=== PATIENT | female | born 1955 | race Caucasian/White ===

== ENCOUNTER 2017-02-05 05:57 | Inpatient (IN) | payer BC ==
[2017-02-05] MEDS ORDERED: Docusate Sodium 100 MG Cap PO PRN (06:21)
[2017-02-05] MEDS ORDERED: Naloxone 0.4 MG/ML SDV IVPUSH PRN (06:21)
[2017-02-05] MEDS ORDERED: diphenhydrAMINE 50 MG/ML SDV IVPUSH PRN ×2 (06:21→07:58)
[2017-02-05] MEDS ORDERED: Sennosides 8.6 MG Tab PO PRN (06:21)
[2017-02-05] MEDS ORDERED: Bisacodyl 5 MG Tab PO PRN (06:21)
[2017-02-05] MEDS ORDERED: Morphine 2 MG/ML Syringe IVPUSH PRN (06:21)
[2017-02-05] MEDS ORDERED: Magnesium Hydroxide 400 MG/5 ML Susp 30 ML Cup PO PRN (06:21)
[2017-02-05] MEDS ORDERED: Cyclobenzaprine 10 MG Tab PO PRN (06:21)
[2017-02-05] MEDS ORDERED: ceFAZolin 2 GM in Premix Bag 1 BAG IV SCH (06:30)
[2017-02-05] MEDS ORDERED: Ketorolac 15 MG/ML SDV IVPUSH SCH (06:30)
[2017-02-05] MEDS: Lactated Ringers 1,000 ML IV SCH ×2 (06:30→09:31)
--- NOTE | 2017-02-05 06:51 | PCM.PREANE ---
Preanesthetic Assessment - Anesthesia/Transfusion/Family Hx Anesthesia History: Prior Anesthesia Without Reaction Family History of Anesthesia Reaction: No Transfusion History: No Prior Transfusion(s) - Review of Systems General: No Symptoms Pulmonary: No Symptoms Cardiovascular: No Symptoms Gastrointestinal: No Symptoms Neurological: No Symptoms Other: Reports: None - Physical Assessment NPO Status Date: 02/04/17 NPO Status Time: 22:30 O2 Sat by Pulse Oximetry: 93 Respiratory Rate: 16 Vital Signs: Last Vital Signs Temp 36.9 C 02/05/17 06:05 Pulse 93 02/05/17 06:05 Resp 16 02/05/17 06:05 BP 126/88 02/05/17 06:05 Pulse Ox 93 L 02/05/17 06:05 ASA Class: 2 Mental Status: Alert & Oriented x3 Airway Class: Mallampati = 1 Dentition: Reports: Normal Dentition Thyro-Mental Finger Breadths: 2 Mouth Opening Finger Breadths: 3 ROM/Head Extension: Full Lungs: Clear to Auscultation, Normal Respiratory Effort Cardiovascular: Regular Rate, Regular Rhythm - Lab Values: Reviewed - Imaging/EKG Impressions: Reviewed - Allergies Allergies/Adverse Reactions: Allergies Allergy/AdvReac Type Severity Reaction Status Date / Time No Known Allergies Allergy Verified 02/02/17 14:38 - Acknowledgements Anesthesia Type Planned: Spinal Pt an Appropriate Candidate for the Planned Anesthesia: Yes Alternatives and Risks of Anesthesia Discussed w Pt/Guardian: Yes Pt/Guardian Understands and Agrees with Anesthesia Plan: Yes PreAnesthesia Questionnaire HEENT History: Reports: Allergic Rhinitis, Impaired Vision, Sinusitis, Other ( See Below) Other HEENT History: wears glasses Cardiovascular History: Reports: None Respiratory History: Reports: None Gastrointestinal History: Reports: None Genitourinary History: Reports: None [employer]CH[employer] SPECIALIST History: Reports: Other (See Below) Other OB/BYN History: hot flashes, breast lumpectomy Musculoskeletal History: Reports: Arthritis, Other (See Below) Other Musculoskeletal History: metacarpal fracture with fixation Neurological History: Reports: None Psychiatric History: Reports: Other (See Below) Other Psychiatric History: insomnia Endocrine/Metabolic History: Reports: None Hematologic History: Reports: None Immunologic History: Reports: None Oncologic (Cancer) History: Reports: None Dermatologic History: Reports: None - Past Surgical History Head Surgeries/Procedures: Reports: None Cardiovascular Surgical History: Reports: None Respiratory Surgical History: Reports: None GI Surgical History: Reports: None Female Surgical History: Reports: Hysterectomy Male Surgical History: Reports: None Endocrine Surgical History: Reports: None Neurological Surgical History: Reports: None Musculoskeletal Surgical History: Reports: None Oncologic Surgical History: Reports: None Dermatological Surgical History: Reports: None - SUBSTANCE USE Smoking Status *Q: Never Smoker Second Hand Smoke Exposure: No Days Per Week of Alcohol Use: 0 Number of Drinks Per Day: 0 Total Drinks Per Week: 0 Recreational Drug Use History: No - HOME MEDS Home Medications: Home Meds C-Progesterone 1 applic TOP DAILY 02/02/17 [History] Cholecalciferol (Vitamin D3) [Vitamin D3] 2,000 unit PO DAILY 02/02/17 [History] Ibuprofen 400 mg PO TID PRN 02/02/17 [History] Loratadine [Claritin] 10 mg PO DAILY PRN 02/02/17 [History] Magnesium 250 mg PO TID 02/02/17 [History] Multivitamin [Daily Multiple Vitamin] 1 tab PO DAILY 02/02/17 [History] Zolpidem Tartrate [Zolpidem Tartrate] 5 mg PO BEDTIME PRN 02/02/17 [History] - CURRENT (IN HOUSE) MEDS Current Meds: Current Medications Aspirin (Ecotrin) 325 mg PO BID JOAQUIM Bisacodyl (Dulcolax) 5 mg PO DAILY PRN PRN Reason: Constipation Morphine Sulfate 8 mg/Epinephrine HCl 0.3 mg/Cefuroxime Sodium 750 mg/Ketorolac Tromethamine 30 mg/Sodium Chloride 27.9 ml 0 mg .XX ONETIME ONE Stop: 02/05/17 06:22 Cyclobenzaprine HCl (Flexeril) 10 mg PO TID PRN PRN Reason: Spasms Diphenhydramine HCl (Benadryl) 25 mg IVPUSH Q4H PRN PRN Reason: Nausea Docusate Sodium (Colace) 100 mg PO BID PRN PRN Reason: Constipation Famotidine (Pepcid) 20 mg PO Q12H [facility] Lactated Ringer's (Ringers, Lactated) 1,000 mls @ 125 mls/hr IV ASDIRECTED [facility] Cefazolin Sodium/Dextrose 2 gm (/ Premix) 50 mls @ 100 mls/hr IV Q8H JOAQUIM Stop: 02/05/17 22:59 Ketorolac Tromethamine (Toradol) 15 mg IVPUSH Q6H JOAQUIM Stop: 02/05/17 18:31 Lidocaine/Sodium Bicarbonate (Buffered Lidocaine 1% In Ns 8.4%) 0.25 ml IV ONETIME PRN PRN Reason: Prior to IV Start Magnesium Hydroxide (Milk Of Magnesia) 30 ml PO BID PRN PRN Reason: Constipation Morphine Sulfate (Morphine) 2 mg IVPUSH Q2H PRN PRN Reason: Breakthrough Pain Naloxone HCl (Narcan) 0.1 mg IVPUSH Q5M PRN PRN Reason: Oversedation Ondansetron HCl (Zofran) 4 mg IVPUSH Q6H PRN PRN Reason: Nausea/Vomiting Oxycodone/Acetaminophen (Percocet 325-5 Mg) 1 - 2 tab PO Q4H PRN PRN Reason: Pain Senna (Senna) 8.6 mg PO BID PRN PRN Reason: Constipation Sodium Chloride (Saline Flush) 10 ml FLUSH ASDIRECTED PRN PRN Reason: Keep Vein Open Discontinued Medications Bupivacaine HCl (Marcaine 0.25%) Confirm Administered Dose 30 ml .ROUTE .STK- MED ONE Stop: 02/05/17 06:01 Cefazolin Sodium (Ancef) Confirm Administered Dose 2 gm .ROUTE .STK-MED ONE Stop: 02/05/17 06:01 Iodine (Iodine 2% Mild Tincture) Confirm Administered Dose 30 ml .ROUTE .STK- MED ONE Stop: 02/05/17 06:01 Tranexamic Acid (Cyklokapron) Confirm Administered Dose 1,000 mg .ROUTE .STK- MED ONE Stop: 02/05/17 06:00 Vancomycin HCl (Vancomycin) Confirm Administered Dose 1 gm .ROUTE .STK-MED ONE Stop: 02/05/17 06:01
[2017-02-05] MEDS ORDERED: Lidocaine 1%/Sod Bicarbonate in NS 8.4% 1 ML Syringe IV PRN (07:00)
[2017-02-05] MEDS ORDERED: Sodium Chloride 0.9% 10 ML Syringe FLUSH PRN (07:00)
[2017-02-05] MEDS ORDERED: fentaNYL 100 MCG/2 ML SDV ONE (07:03)
[2017-02-05] MEDS ORDERED: Propofol 200 MG/20 ML SDV ONE ×8 (07:03→11:56)
[2017-02-05] MEDS ORDERED: Ketamine 500 mg/10 ML MDV ONE ×2 (07:04→10:28)
[2017-02-05] MEDS ORDERED: Midazolam 1 MG/ML 2 ML SDV ONE ×3 (07:04→12:01)
[2017-02-05] MEDS ORDERED: Morphine PF 10 MG/10 ML SDV ONE (07:18)
[2017-02-05] MEDS ORDERED: ceFAZolin 1 GM Vial ONE (07:27)
[2017-02-05] MEDS ORDERED: ePHEDrine 50 MG/ML SDV IVPUSH PRN (07:58)
[2017-02-05] MEDS ORDERED: Ondansetron 4 MG/2 ML SDV IVPUSH PRN (07:58)
[2017-02-05] MEDS: Iodine/Sodium Iodide 2% Tincture 30 ML Bottle ONE ×2 (08:00→08:19)
[2017-02-05] MEDS: ceFAZolin 1 GM Vial ONE ×2 (08:01→08:23)
[2017-02-05] MEDS: Bupivacaine 0.25% 30 ML SDV ONE ×2 (08:01→08:28)
[2017-02-05] MEDS: Vancomycin 1 GM SDV ONE ×2 (08:02→08:35)
[2017-02-05] MEDS: Morphine 8 MG, EPINEPHrine 0.3 MG, Cefuroxime 750 MG, Ketorolac 30 MG, Sodium Chloride ... ONE ×10 (08:02→08:28)
[2017-02-05] MEDS ORDERED: Phenylephrine 1% 10 MG/ML SDV ONE ×2 (08:10→10:47)
[2017-02-05] MEDS ORDERED: ePHEDrine 50 MG/ML SDV ONE ×2 (08:59→11:08)
[2017-02-05] MEDS ORDERED: Haloperidol Lactate 5 MG/ML SDV IVPUSH ONE (09:00)
--- NOTE | 2017-02-05 09:14 | PCM.POSTAN ---
POST ANESTHESIA ASSESSMENT - MENTAL STATUS Mental Status: Alert, Oriented - VITAL SIGNS Pulse Rate: 102 SaO2: 95 Resp Rate: 16 Blood Pressure: 110/62 Temperature: 98 F - RESPIRATORY Respiratory Status: Respiratory Rate WNL, Airway Patent, O2 Saturation Stable - CARDIOVASCULAR CV Status: Pulse Rate WNL, Blood Pressure Stable - GASTROINTESTINAL GI Status: No Symptoms - PAIN Pain Score: 0 - POST OP HYDRATION Hydration Status: Adequate & Stable
[2017-02-05] MEDS ORDERED: Ketorolac 30 MG/ML SDV ONE (09:20)
--- NOTE | 2017-02-05 09:46 | CR ---
Right knee: AP and lateral views of the right knee were obtained. Comparison: No previous knee exam. Knee prosthesis is seen. Components are aligned. Air is noted within the joint and within the soft tissues compatible with the procedure. Underlying bony structures are intact. Impression: 1. Satisfactory radiographic appearance of recently placed right knee prosthesis. Diagnostic code #2
--- NOTE | 2017-02-05 10:27 | PCM.OPNOTE ---
- General Post-Op/Procedure Note Date of Surgery/Procedure: 02/05/17 Operative Procedure(s): right total knee arthroplasty Pre Op Diagnosis: right knee osteoarthrosis Post-Op Diagnosis: Same Anesthesia Technique: Local, MAC, Spinal Primary Surgeon: Eduard Sainz Anesthesia Provider: Lolita Reyes Fisheries Diver: Fátima Johnson Fisheries Diver: Jacki Bañuelos EBL in mLs: 200 Complications: None Condition: Good Free Text/Narrative:: Intake & Output 02/04/17 02/05/17 02/05/17 22:59 06:59 14:59 Intake Total 300 Output Total 825 Balance -525 size 4 femur and tibia press fit 9mm poly 29x9mm patella
--- NOTE | 2017-02-05 11:13 | PCM.CONSN ---
- General Info Date of Service: 02/05/17 Admission Dx/Problem (Free Text): Post-Op knee arthroplasty Functional Status: Reports: Pain Controlled - Review of Systems General: Reports: No Symptoms HEENT: Reports: No Symptoms Pulmonary: Reports: No Symptoms Cardiovascular: Reports: No Symptoms Gastrointestinal: Reports: No Symptoms Genitourinary: Reports: No Symptoms (Catheter in place) Musculoskeletal: Reports: No Symptoms Skin: Reports: No Symptoms Neurological: Reports: No Symptoms Psychiatric: Reports: No Symptoms - Patient Data Vitals - Most Recent: Last Vital Signs Temp 97.5 F 02/05/17 10:00 Pulse 102 H 02/05/17 09:14 Resp 12 02/05/17 10:00 BP 122/75 02/05/17 10:00 Pulse Ox 95 02/05/17 10:42 Weight - Most Recent: 140 lb I&O - Last 24 Hours: Intake & Output 02/04/17 02/05/17 02/05/17 22:59 06:59 14:59 Intake Total 300 Output Total 825 Balance -525 Med Orders - Current: Current Medications Aspirin (Ecotrin) 325 mg PO BID JOAQUIM Bisacodyl (Dulcolax) 5 mg PO DAILY PRN PRN Reason: Constipation Cyclobenzaprine HCl (Flexeril) 10 mg PO TID PRN PRN Reason: Spasms Diphenhydramine HCl (Benadryl) 25 mg IVPUSH Q4H PRN PRN Reason: Nausea Diphenhydramine HCl (Benadryl) 25 mg IVPUSH Q6H PRN PRN Reason: Pruritis Stop: 02/05/17 18:00 Docusate Sodium (Colace) 100 mg PO BID PRN PRN Reason: Constipation Famotidine (Pepcid) 20 mg PO Q12H [facility] Cefazolin Sodium/Dextrose 2 gm (/ Premix) 50 mls @ 100 mls/hr IV Q8H [facility] Stop: 02/05/17 22:59 Ketorolac Tromethamine (Toradol) 15 mg IVPUSH Q6H [facility] Stop: 02/05/17 18:31 Magnesium Hydroxide (Milk Of Magnesia) 30 ml PO BID PRN PRN Reason: Constipation Morphine Sulfate (Morphine) 2 mg IVPUSH Q2H PRN PRN Reason: Breakthrough Pain Naloxone HCl (Narcan) 0.1 mg IVPUSH Q5M PRN PRN Reason: Oversedation Ondansetron HCl (Zofran) 4 mg IVPUSH Q6H PRN PRN Reason: Nausea/Vomiting Ondansetron HCl (Zofran) 4 mg IVPUSH ONETIME PRN PRN Reason: Nausea/Vomiting Stop: 02/05/17 18:00 Oxycodone/Acetaminophen (Percocet 325-5 Mg) 1 - 2 tab PO Q4H PRN PRN Reason: Pain Senna (Senna) 8.6 mg PO BID PRN PRN Reason: Constipation Sodium Chloride (Saline Flush) 10 ml FLUSH ASDIRECTED PRN PRN Reason: Keep Vein Open Discontinued Medications Bupivacaine HCl (Marcaine 0.25%) Confirm Administered Dose 30 ml .ROUTE .STK- MED ONE Stop: 02/05/17 06:01 Last Admin: 02/05/17 08:28 Dose: 30 ml Cefazolin Sodium (Ancef) Confirm Administered Dose 2 gm .ROUTE .STK-MED ONE Stop: 02/05/17 06:01 Last Admin: 02/05/17 08:23 Dose: 2 gm Cefazolin Sodium (Ancef) Confirm Administered Dose 2 gm .ROUTE .STK-MED ONE Stop: 02/05/17 07:28 Morphine Sulfate 8 mg/Epinephrine HCl 0.3 mg/Cefuroxime Sodium 750 mg/Ketorolac Tromethamine 30 mg/Sodium Chloride 27.9 ml 0 mg .XX ONETIME ONE Stop: 02/05/17 07:31 Last Admin: 02/05/17 08:28 Dose: 788.3 mg Ephedrine Sulfate (Ephedrine Sulfate) 5 mg IVPUSH ASDIRECTED PRN PRN Reason: Hypotension Stop: 02/05/17 18:00 Ephedrine Sulfate (Ephedrine Sulfate) Confirm Administered Dose 50 mg .ROUTE .STK-MED ONE Stop: 02/05/17 09:00 Fentanyl (Sublimaze) Confirm Administered Dose 100 mcg .ROUTE .STK-MED ONE Stop: 02/05/17 07:04 Haloperidol Lactate (Haldol) 1 mg IVPUSH ONETIME ONE Stop: 02/05/17 09:01 Lactated Ringer's (Ringers, Lactated) 1,000 mls @ 125 mls/hr IV ASDIRECTED JOAQUIM Last Admin: 02/05/17 09:31 Dose: 125 mls/hr Iodine (Iodine 2% Mild Tincture) Confirm Administered Dose 30 ml .ROUTE .STK- MED ONE Stop: 02/05/17 06:01 Last Admin: 02/05/17 08:19 Dose: 18 ml Ketamine HCl (Ketalar) Confirm Administered Dose 500 mg .ROUTE .STK-MED ONE Stop: 02/05/17 07:05 Ketamine HCl (Ketalar) Confirm Administered Dose 500 mg .ROUTE .STK-MED ONE Stop: 02/05/17 10:29 Ketorolac Tromethamine (Toradol) Confirm Administered Dose 30 mg .ROUTE .STK- MED ONE Stop: 02/05/17 09:21 Lidocaine/Sodium Bicarbonate (Buffered Lidocaine 1% In Ns 8.4%) 0.25 ml IV ONETIME PRN PRN Reason: Prior to IV Start Last Admin: 02/05/17 06:29 Dose: 0.25 ml Midazolam HCl (Versed 1 Mg/Ml) Confirm Administered Dose 2 mg .ROUTE .STK-MED ONE Stop: 02/05/17 07:05 Midazolam HCl (Versed 1 Mg/Ml) Confirm Administered Dose 2 mg .ROUTE .STK-MED ONE Stop: 02/05/17 10:44 Morphine Sulfate (Duramorph Pf) Confirm Administered Dose 10 mg .ROUTE .STK-MED ONE Stop: 02/05/17 07:19 Phenylephrine HCl (David-Synephrine) Confirm Administered Dose 10 mg .ROUTE .STK- MED ONE Stop: 02/05/17 08:11 Phenylephrine HCl (David-Synephrine) Confirm Administered Dose 10 mg .ROUTE .STK- MED ONE Stop: 02/05/17 10:48 Propofol (Diprivan 20 Ml) Confirm Administered Dose 200 mg .ROUTE .STK-MED ONE Stop: 02/05/17 07:04 Propofol (Diprivan 20 Ml) Confirm Administered Dose 200 mg .ROUTE .STK-MED ONE Stop: 02/05/17 07:06 Propofol (Diprivan 20 Ml) Confirm Administered Dose 200 mg .ROUTE .STK-MED ONE Stop: 02/05/17 07:08 Propofol (Diprivan 20 Ml) Confirm Administered Dose 200 mg .ROUTE .STK-MED ONE Stop: 02/05/17 10:38 Propofol (Diprivan 20 Ml) Confirm Administered Dose 200 mg .ROUTE .STK-MED ONE Stop: 02/05/17 10:38 Propofol (Diprivan 20 Ml) Confirm Administered Dose 200 mg .ROUTE .STK-MED ONE Stop: 02/05/17 10:46 Tranexamic Acid (Cyklokapron) Confirm Administered Dose 1,000 mg .ROUTE .STK- MED ONE Stop: 02/05/17 06:00 Last Admin: 02/05/17 08:41 Dose: 1,000 mg Vancomycin HCl (Vancomycin) Confirm Administered Dose 1 gm .ROUTE .STK-MED ONE Stop: 02/05/17 06:01 Last Admin: 02/05/17 08:35 Dose: 1 gm - Exam General: Alert, Cooperative, No Acute Distress HEENT: Pupils Equal, EOMI, Mucous Membr. Moist/[place] Neck: Supple Lungs: Clear to Auscultation, Normal Respiratory Effort Cardiovascular: Regular Rate, Regular Rhythm GI/Abdominal Exam: Normal Bowel Sounds, Soft, Non-Tender, No Organomegaly, No Distention (Female) Exam: Deferred Extremities: Normal Inspection Skin: Warm, Dry Wound/Incisions: Dressing Dry and Intact Neurological: No New Focal Deficit Psy/Mental Status: Alert, Normal Affect, Normal Mood Consult PN Assessment/Plan POD#: 0 Procedures: Procedures ANTINUCLEAR ANTIBODIES (11/28/16) ASSAY OF PREALBUMIN (01/17/17) ASSAY THYROID STIM HORMONE (05/16/16) C-REACTIVE PROTEIN (11/28/16) CCP ANTIBODY (11/28/16) CHEST X-RAY 2VW FRONTAL&LATL (01/17/17) COMPLETE CBC W/AUTO DIFF WBC (01/17/17) COMPREHEN METABOLIC PANEL (01/17/17) FLUOROSCOPE EXAMINATION (04/02/14) LIPID PANEL (05/16/16) METABOLIC PANEL TOTAL CA (04/02/14) MR-STAPH DNA AMP PROBE (01/24/17) PROTHROMBIN TIME (01/17/17) RBC SED RATE AUTOMATED (11/28/16) RHEUMATOID FACTOR TEST QUAL (11/28/16) ROUTINE VENIPUNCTURE (01/17/17) THROMBOPLASTIN TIME PARTIAL (01/17/17) TREAT METACARPAL FRACTURE (04/02/14) Problem List Initiated/Reviewed/Updated: No Plan: Patient is a 61 yo female that is post-op day 0. She reports that she is feeling slightly itchy and was told that is the residual effects from the anesthesia. She reports no other acute symptoms. She is in no acute distress. Physical exam shows that right knee is under cool compression. She has SCDs on for DVT prophylaxis. Cardiopulmonary exam is unremarkable and abdominal is soft with bowel sounds active. Will wait for PT to assess physical activity and mobility. Plan: Consult with PT Remove catheter Routine vitals
[2017-02-05] MEDS: Famotidine 20 MG Tab PO SCH ×2 (11:22→17:35)
[2017-02-05] MEDS ORDERED: Lactated Ringers 0 ML ONE (11:34)
[2017-02-05] MEDS ORDERED: Lactated Ringers 1,000 ML ONE ×3 (12:06→12:07)
[2017-02-05] MEDS: Ketorolac 15 MG/ML SDV IVPUSH SCH ×2 (14:21→21:12)
[2017-02-05] MEDS: ceFAZolin 2 GM in Premix Bag 1 BAG IV SCH ×3 (14:23→23:06)
[2017-02-05] MEDS: Ondansetron 4 MG/2 ML SDV IVPUSH PRN (14:55)
[2017-02-05] MEDS: Acetaminophen/oxyCODONE 325-5 MG Tab PO PRN ×2 (18:32→23:07)
[2017-02-05] MEDS ORDERED: Zolpidem 10 MG Tab PO PRN (21:21)
--- NOTE | 2017-02-05 21:50 | PCM.CONS ---
H&P History of Present Illness - General Date of Service: 02/05/17 Admit Problem/Dx: Osteoarthritis of right knee Source of Information: Patient, Old Records, Provider, RN, RN Notes Reviewed, Other (surgical notes ) History Limitations: Reports: No Limitations - History of Present Illness Initial Comments - Free Text/Narative: Kathy Pretty is a 61 yo female pt. of Dr. Sainz who is post operative day 0 of right TKA. Hospital medicine was consulted for post-operative medical management. She is resting comfortably in bed. Pain is well controlled. She denies any CP, SOB, palpitations, nausea or vomiting. She reports she was initially nauseated and did vomit right after surgery, but this has since resolved and she did eat. She carries a history of arthritis and insomnia. She was never a smoker. She is a full code and her PCP is Mercy Donato PA-C here at [facility] R knee Pain Score (Numeric/FACES): 0 - Related Data Allergies/Adverse Reactions: Allergies Allergy/AdvReac Type Severity Reaction Status Date / Time No Known Allergies Allergy Verified 02/05/17 10:25 Home Medications: Home Meds C-Progesterone 1 applic TOP DAILY 02/02/17 [History] Cholecalciferol (Vitamin D3) [Vitamin D3] 5,000 unit PO DAILY 02/02/17 [History] Ibuprofen 400 mg PO TID PRN 02/02/17 [History] Magnesium 250 mg PO TID 02/02/17 [History] Multivitamin [Daily Multiple Vitamin] 1 tab PO DAILY 02/02/17 [History] Zolpidem Tartrate [Zolpidem Tartrate] 5 mg PO BEDTIME PRN 02/02/17 [History] Past Medical History HEENT History: Reports: Allergic Rhinitis, Impaired Vision, Sinusitis, Other ( See Below) Other HEENT History: wears glasses Cardiovascular History: Reports: None Respiratory History: Reports: None Gastrointestinal History: Reports: None Genitourinary History: Reports: None [employer] History: Reports: Other (See Below) Other OB/BYN History: hot flashes, breast lumpectomy Musculoskeletal History: Reports: Arthritis, Other (See Below) Other Musculoskeletal History: metacarpal fracture with fixation Neurological History: Reports: None Psychiatric History: Reports: Other (See Below) Other Psychiatric History: insomnia Endocrine/Metabolic History: Reports: None Hematologic History: Reports: None Immunologic History: Reports: None Oncologic (Cancer) History: Reports: None Dermatologic History: Reports: None - Infectious Disease History Infectious Disease History: Reports: Chicken Pox, Measles, Mumps - Past Surgical History Head Surgeries/Procedures: Reports: None Cardiovascular Surgical History: Reports: None Respiratory Surgical History: Reports: None GI Surgical History: Reports: None Female Surgical History: Reports: Hysterectomy Other Female Surgeries/Procedures: 2006 Endocrine Surgical History: Reports: None Neurological Surgical History: Reports: None Musculoskeletal Surgical History: Reports: None Oncologic Surgical History: Reports: None Dermatological Surgical History: Reports: None Social & Family History - Tobacco Use Smoking Status *Q: Never Smoker Second Hand Smoke Exposure: No - Caffeine Use Caffeine Use: Reports: Coffee Other Caffeine Use: 1 coffee - Alcohol Use Days Per Week of Alcohol Use: 0 Number of Drinks Per Day: 0 Total Drinks Per Week: 0 - Recreational Drug Use Recreational Drug Use: No Drug Use in Last 12 Months: No H&P Review of Systems - Review of Systems: Review Of Systems: See Below General: Reports: No Symptoms. Denies: Fever, Chills, Malaise, Weakness, Decreased Appetite HEENT: Reports: No Symptoms. Denies: Ear Pain, Eye Pain, Headaches, Sore Throat , Vertigo, Visual Changes Pulmonary: Reports: No Symptoms. Denies: Shortness of Breath, Wheezing, Pleuritic Chest Pain, Cough, Sputum Cardiovascular: Reports: No Symptoms. Denies: Chest Pain, Palpitations, Dyspnea on Exertion, Edema Gastrointestinal: Reports: No Symptoms. Denies: Abdominal Pain, Constipation, Diarrhea, Nausea, Vomiting Genitourinary: Reports: No Symptoms. Denies: Dysuria, Frequency, Burning, Pain , Urgency Musculoskeletal: Reports: No Symptoms. Denies: Neck Pain, Shoulder Pain, Arm Pain, Back Pain, Hand Pain, Leg Pain, Foot Pain, Joint Pain, Joint Swelling Skin: Reports: No Symptoms. Denies: Cyanosis, Jaundice, Mottled, Pallor Psychiatric: Reports: No Symptoms. Denies: Confusion, Depression, Anxiety Neurological: Reports: No Symptoms. Denies: Confusion, Dizziness, Headache, Numbness, Tingling, Trouble Speaking, Weakness Hematologic/Lymphatic: Reports: No Symptoms Immunologic: Reports: No Symptoms Review of Systems Comment:: Patient denies any concerns. She reports her [place] catheter came out earlier in the day and she has urinated once already. Exam - Exam Exam: See Below - Vital Signs Vital Signs: Last Vital Signs Temp 98.2 F 02/05/17 19:15 Pulse 91 02/05/17 19:15 Resp 16 02/05/17 21:00 BP 110/71 02/05/17 19:15 Pulse Ox 98 02/05/17 21:00 Weight: 140 lb 11.2 oz - Exam Quality Assessment: DVT Prophylaxis General: Alert, Oriented, Cooperative HEENT: Conjunctiva Clear, EACs Clear, Hearing Intact, Mucosa Moist & [place], Nares Patent, Normal Nasal Septum, Posterior Pharynx Clear, Pupils Equal, Pupils Reactive Neck: Supple, Trachea Midline. No: JVD Lungs: Clear to Auscultation, Normal Respiratory Effort Cardiovascular: Regular Rate, Regular Rhythm GI/Abdominal Exam: Normal Bowel Sounds, Soft, Non-Tender, No Organomegaly, No Distention, No Abnormal Bruit, No Mass (Female) Exam: Deferred Rectal (Female) Exam: Deferred Back Exam: Normal Inspection, Full Range of Motion Extremities: No Pedal Edema, Normal Capillary Refill, Limited Range of Motion, Other (MAREK bandage present on right leg. Bandage is dry and intact. ) Peripheral Pulses: 2+: Radial (L), Radial (R), Posterior Tibial (L), Posterior Tibial (R), Dorsalis Pedis (L), Dorsalis Pedis (R) Skin: Warm, Dry, Intact Neurological: Cranial Nerves Intact (grossly ) Neuro Extensive - Mental Status: Alert, Oriented x3, Normal Mood/Affect, Normal Cognition, Memory Intact Neuro Extensive - Motor, Sensory, Reflexes: CN II-XII Intact (grossly ) Psychiatric: Alert, Normal Affect, Normal Mood Physical Exam Comments:: Patient is examined while lying in hospital bed. No concerns at this time. She is essentially pain free. Consult PN Assessment/Plan POD#: 0 Procedures: Procedures ANTINUCLEAR ANTIBODIES (11/28/16) ASSAY OF PREALBUMIN (01/17/17) ASSAY THYROID STIM HORMONE (05/16/16) C-REACTIVE PROTEIN (11/28/16) CCP ANTIBODY (11/28/16) CHEST X-RAY 2VW FRONTAL&LATL (01/17/17) COMPLETE CBC W/AUTO DIFF WBC (01/17/17) COMPREHEN METABOLIC PANEL (01/17/17) FLUOROSCOPE EXAMINATION (04/02/14) LIPID PANEL (05/16/16) METABOLIC PANEL TOTAL CA (04/02/14) MR-STAPH DNA AMP PROBE (01/24/17) PROTHROMBIN TIME (01/17/17) RBC SED RATE AUTOMATED (11/28/16) RHEUMATOID FACTOR TEST QUAL (11/28/16) ROUTINE VENIPUNCTURE (01/17/17) THROMBOPLASTIN TIME PARTIAL (01/17/17) TREAT METACARPAL FRACTURE (04/02/14) (1) S/P total knee arthroplasty SNOMED Code(s): 9526579669390, 0034882786112 Code(s): Z96.659 - PRESENCE OF UNSPECIFIED ARTIFICIAL KNEE JOINT Priority: High Current Visit: Yes Qualifiers: Laterality: right Qualified Code(s): Z96.651 - Presence of right artificial knee joint (2) Insomnia SNOMED Code(s): 031455707 Code(s): G47.00 - INSOMNIA, UNSPECIFIED Priority: Low Current Visit: Yes Qualifiers: Insomnia type: unspecified Qualified Code(s): G47.00 - Insomnia, unspecified (3) Arthritis SNOMED Code(s): 8538295 Code(s): M19.90 - UNSPECIFIED OSTEOARTHRITIS, UNSPECIFIED SITE Priority: Medium Current Visit: Yes Problem List Initiated/Reviewed/Updated: Yes My Orders Last 24 Hours: My Active Orders 02/05/17 21:21 Zolpidem [Ambien] 5 mg PO BEDTIME PRN 02/06/17 09:00 Cholecalciferol (Vitamin D3) [Vitamin D3] 5,000 units PO DAILY Magnesium [Magnesium] 250 mg PO TID Plan: I/P: Acute: S/P right TKA, post-operative day 0 -DVT prophylaxis and pain management per primary team -PT/OT -IS/RT -Monitor O2 saturation -O2 as needed Chronic: Insomnia Arthritis Plan: CM/SW for discharge planning Routine AM labs GI prophylaxis Home medications as indicated Other orders as above She is a full code. Her PCP is Mercy Donato PA-C here at [facility] Requesting Provider: Dr. Sainz Date Consult Requested: 02/05/17 Reason for Consult: Post-operative medical management Patient History Reviewed: Yes Admission H&P Reviewed: Yes Time Spent (in minutes): 30
[2017-02-06] MEDS: Ketorolac 15 MG/ML SDV IVPUSH SCH (02:58)
--- NOTE | 2017-02-06 06:20 | PCM.CONSN ---
- General Info Date of Service: 02/06/17 Admission Dx/Problem (Free Text): Osteoarthritis of right knee Subjective Update: Follow-up. Overall she is doing very well. Functional Status: Reports: Pain Controlled, Tolerating Diet, Ambulating, Urinating, Incentive Spirometry. Denies: New Symptoms - Review of Systems General: Reports: No Symptoms HEENT: Reports: No Symptoms Pulmonary: Reports: No Symptoms Cardiovascular: Reports: No Symptoms Gastrointestinal: Reports: No Symptoms Genitourinary: Reports: No Symptoms Musculoskeletal: Reports: No Symptoms Skin: Reports: No Symptoms Neurological: Reports: No Symptoms Psychiatric: Reports: No Symptoms Systems Review Comment:: She is pain free currently. She has urinated. She is off O2. - Patient Data Vitals - Most Recent: Last Vital Signs Temp 97.3 F 02/06/17 04:10 Pulse 90 02/06/17 04:10 Resp 16 02/06/17 04:10 BP 105/66 02/06/17 04:10 Pulse Ox 97 02/06/17 04:10 Weight - Most Recent: 147 lb 8 oz I&O - Last 24 Hours: Intake & Output 02/05/17 02/05/17 02/06/17 14:59 22:59 06:59 Intake Total 540 870 350 Output Total 825 850 800 Balance -285 20 -450 Med Orders - Current: Current Medications Aspirin (Ecotrin) 325 mg PO BID JOAQUIM Bisacodyl (Dulcolax) 5 mg PO DAILY PRN PRN Reason: Constipation Cholecalciferol (Vitamin D3) 5,000 units PO DAILY [facility] Cyclobenzaprine HCl (Flexeril) 10 mg PO TID PRN PRN Reason: Spasms Diphenhydramine HCl (Benadryl) 25 mg IVPUSH Q4H PRN PRN Reason: Nausea Docusate Sodium (Colace) 100 mg PO BID PRN PRN Reason: Constipation Famotidine (Pepcid) 20 mg PO Q12H [facility] Last Admin: 02/05/17 17:35 Dose: 20 mg Cefazolin Sodium/Dextrose 2 gm (/ Premix) 50 mls @ 100 mls/hr IV Q8H [facility] Stop: 02/06/17 07:59 Last Admin: 02/05/17 23:06 Dose: 100 mls/hr Magnesium Hydroxide (Milk Of Magnesia) 30 ml PO BID PRN PRN Reason: Constipation Morphine Sulfate (Morphine) 2 mg IVPUSH Q2H PRN PRN Reason: Breakthrough Pain Naloxone HCl (Narcan) 0.1 mg IVPUSH Q5M PRN PRN Reason: Oversedation Non-Formulary Medication (Magnesium [Magnesium]) 250 mg PO TID JOAQUIM Ondansetron HCl (Zofran) 4 mg IVPUSH Q6H PRN PRN Reason: Nausea/Vomiting Last Admin: 02/05/17 14:55 Dose: 4 mg Oxycodone/Acetaminophen (Percocet 325-5 Mg) 1 - 2 tab PO Q4H PRN PRN Reason: Pain Last Admin: 02/05/17 23:07 Dose: 2 tab Senna (Senna) 8.6 mg PO BID PRN PRN Reason: Constipation Sodium Chloride (Saline Flush) 10 ml FLUSH ASDIRECTED PRN PRN Reason: Keep Vein Open Zolpidem Tartrate (Ambien) 5 mg PO BEDTIME PRN PRN Reason: Insomnia Discontinued Medications Bupivacaine HCl (Marcaine 0.25%) Confirm Administered Dose 30 ml .ROUTE .STK- MED ONE Stop: 02/05/17 06:01 Last Admin: 02/05/17 08:28 Dose: 30 ml Cefazolin Sodium (Ancef) Confirm Administered Dose 2 gm .ROUTE .STK-MED ONE Stop: 02/05/17 06:01 Last Admin: 02/05/17 08:23 Dose: 2 gm Cefazolin Sodium (Ancef) Confirm Administered Dose 2 gm .ROUTE .STK-MED ONE Stop: 02/05/17 07:28 Morphine Sulfate 8 mg/Epinephrine HCl 0.3 mg/Cefuroxime Sodium 750 mg/Ketorolac Tromethamine 30 mg/Sodium Chloride 27.9 ml 0 mg .XX ONETIME ONE Stop: 02/05/17 07:31 Last Admin: 02/05/17 08:28 Dose: 788.3 mg Diphenhydramine HCl (Benadryl) 25 mg IVPUSH Q6H PRN PRN Reason: Pruritis Stop: 02/05/17 18:00 Ephedrine Sulfate (Ephedrine Sulfate) 5 mg IVPUSH ASDIRECTED PRN PRN Reason: Hypotension Stop: 02/05/17 18:00 Ephedrine Sulfate (Ephedrine Sulfate) Confirm Administered Dose 50 mg .ROUTE .STK-MED ONE Stop: 02/05/17 09:00 Ephedrine Sulfate (Ephedrine Sulfate) Confirm Administered Dose 50 mg .ROUTE .STK-MED ONE Stop: 02/05/17 11:09 Fentanyl (Sublimaze) Confirm Administered Dose 100 mcg .ROUTE .STK-MED ONE Stop: 02/05/17 07:04 Haloperidol Lactate (Haldol) 1 mg IVPUSH ONETIME ONE Stop: 02/05/17 09:01 Last Admin: 02/05/17 11:25 Dose: Not Given Lactated Ringer's (Ringers, Lactated) 1,000 mls @ 125 mls/hr IV ASDIRECTED [facility] Last Admin: 02/05/17 09:31 Dose: 125 mls/hr Cefazolin Sodium/Dextrose 2 gm (/ Premix) 50 mls @ 100 mls/hr IV Q8H [facility] Stop: 02/05/17 22:59 Last Admin: 02/05/17 11:24 Dose: Not Given Lactated Ringer's (Ringers, Lactated) Confirm Administered Dose 1,000 mls @ as directed .ROUTE .STK-MED ONE Stop: 02/05/17 11:35 Lactated Ringer's (Ringers, Lactated) Confirm Administered Dose 1,000 mls @ as directed .ROUTE .STK-MED ONE Stop: 02/05/17 12:07 Lactated Ringer's (Ringers, Lactated) Confirm Administered Dose 1,000 mls @ as directed .ROUTE .STK-MED ONE Stop: 02/05/17 12:08 Lactated Ringer's (Ringers, Lactated) Confirm Administered Dose 1,000 mls @ as directed .ROUTE .STK-MED ONE Stop: 02/05/17 12:08 Iodine (Iodine 2% Mild Tincture) Confirm Administered Dose 30 ml .ROUTE .STK- MED ONE Stop: 02/05/17 06:01 Last Admin: 02/05/17 08:19 Dose: 18 ml Ketamine HCl (Ketalar) Confirm Administered Dose 500 mg .ROUTE .STK-MED ONE Stop: 02/05/17 07:05 Ketamine HCl (Ketalar) Confirm Administered Dose 500 mg .ROUTE .STK-MED ONE Stop: 02/05/17 10:29 Ketorolac Tromethamine (Toradol) 15 mg IVPUSH Q6H [facility] Stop: 02/05/17 18:31 Last Admin: 02/05/17 11:25 Dose: Not Given Ketorolac Tromethamine (Toradol) Confirm Administered Dose 30 mg .ROUTE .STK- MED ONE Stop: 02/05/17 09:21 Ketorolac Tromethamine (Toradol) 15 mg IVPUSH Q6H [facility] Stop: 02/06/17 03:01 Last Admin: 02/06/17 02:58 Dose: 15 mg Lidocaine/Sodium Bicarbonate (Buffered Lidocaine 1% In Ns 8.4%) 0.25 ml IV ONETIME PRN PRN Reason: Prior to IV Start Last Admin: 02/05/17 06:29 Dose: 0.25 ml Midazolam HCl (Versed 1 Mg/Ml) Confirm Administered Dose 2 mg .ROUTE .STK-MED ONE Stop: 02/05/17 07:05 Midazolam HCl (Versed 1 Mg/Ml) Confirm Administered Dose 2 mg .ROUTE .STK-MED ONE Stop: 02/05/17 10:44 Midazolam HCl (Versed 1 Mg/Ml) Confirm Administered Dose 2 mg .ROUTE .STK-MED ONE Stop: 02/05/17 12:02 Morphine Sulfate (Duramorph Pf) Confirm Administered Dose 10 mg .ROUTE .STK-MED ONE Stop: 02/05/17 07:19 Ondansetron HCl (Zofran) 4 mg IVPUSH ONETIME PRN PRN Reason: Nausea/Vomiting Stop: 02/05/17 18:00 Phenylephrine HCl (David-Synephrine) Confirm Administered Dose 10 mg .ROUTE .STK- MED ONE Stop: 02/05/17 08:11 Phenylephrine HCl (David-Synephrine) Confirm Administered Dose 10 mg .ROUTE .STK- MED ONE Stop: 02/05/17 10:48 Propofol (Diprivan 20 Ml) Confirm Administered Dose 200 mg .ROUTE .STK-MED ONE Stop: 02/05/17 07:04 Propofol (Diprivan 20 Ml) Confirm Administered Dose 200 mg .ROUTE .STK-MED ONE Stop: 02/05/17 07:06 Propofol (Diprivan 20 Ml) Confirm Administered Dose 200 mg .ROUTE .STK-MED ONE Stop: 02/05/17 07:08 Propofol (Diprivan 20 Ml) Confirm Administered Dose 200 mg .ROUTE .STK-MED ONE Stop: 02/05/17 10:38 Propofol (Diprivan 20 Ml) Confirm Administered Dose 200 mg .ROUTE .STK-MED ONE Stop: 02/05/17 10:38 Propofol (Diprivan 20 Ml) Confirm Administered Dose 200 mg .ROUTE .STK-MED ONE Stop: 02/05/17 10:46 Propofol (Diprivan 20 Ml) Confirm Administered Dose 200 mg .ROUTE .STK-MED ONE Stop: 02/05/17 11:39 Propofol (Diprivan 20 Ml) Confirm Administered Dose 200 mg .ROUTE .STK-MED ONE Stop: 02/05/17 11:57 Tranexamic Acid (Cyklokapron) Confirm Administered Dose 1,000 mg .ROUTE .STK- MED ONE Stop: 02/05/17 06:00 Last Admin: 02/05/17 08:41 Dose: 1,000 mg Vancomycin HCl (Vancomycin) Confirm Administered Dose 1 gm .ROUTE .STK-MED ONE Stop: 02/05/17 06:01 Last Admin: 02/05/17 08:35 Dose: 1 gm - Exam Quality Assessment: Supplemental Oxygen, DVT Prophylaxis General: Alert, Oriented, Cooperative HEENT: Pupils Equal, Pupils Reactive, Mucous Membr. Moist/[place] Neck: Supple, Trachea Midline. No: No JVD Lungs: Clear to Auscultation, Normal Respiratory Effort Cardiovascular: Regular Rate, Regular Rhythm GI/Abdominal Exam: Normal Bowel Sounds, Soft, Non-Tender, No Organomegaly, No Distention, No Abnormal Bruit, No Mass, Pelvis Stable (Female) Exam: Deferred Back Exam: Normal Inspection, Full Range of Motion Extremities: No Pedal Edema, Normal Capillary Refill, Limited Range of Motion, Other (MAREK bandage present on right knee. ) Peripheral Pulses: 2+: Radial (L), Radial (R), Posterior Tibial (L), Posterior Tibial (R), Dorsalis Pedis (L), Dorsalis Pedis (R) Skin: Warm, Dry, Intact Wound/Incisions: Dressing Dry and Intact, No Drainage Neurological: No New Focal Deficit Psy/Mental Status: Alert, Normal Affect, Normal Mood Physical Findings Comments:: Overall she is doing very well. She is hemodynamically stable. Vital signs been stable. Consult PN Assessment/Plan POD#: 1 Procedures: Procedures ANTINUCLEAR ANTIBODIES (11/28/16) ASSAY OF PREALBUMIN (01/17/17) ASSAY THYROID STIM HORMONE (05/16/16) C-REACTIVE PROTEIN (11/28/16) CCP ANTIBODY (11/28/16) CHEST X-RAY 2VW FRONTAL&LATL (01/17/17) COMPLETE CBC W/AUTO DIFF WBC (01/17/17) COMPREHEN METABOLIC PANEL (01/17/17) FLUOROSCOPE EXAMINATION (04/02/14) LIPID PANEL (05/16/16) METABOLIC PANEL TOTAL CA (04/02/14) MR-STAPH DNA AMP PROBE (01/24/17) PROTHROMBIN TIME (01/17/17) RBC SED RATE AUTOMATED (11/28/16) RHEUMATOID FACTOR TEST QUAL (11/28/16) ROUTINE VENIPUNCTURE (01/17/17) THROMBOPLASTIN TIME PARTIAL (01/17/17) TREAT METACARPAL FRACTURE (04/02/14) (1) S/P total knee arthroplasty SNOMED Code(s): 2655025655971, 2398005945941 Code(s): Z96.659 - PRESENCE OF UNSPECIFIED ARTIFICIAL KNEE JOINT Priority: High Current Visit: Yes Qualifiers: Laterality: right Qualified Code(s): Z96.651 - Presence of right artificial knee joint (2) Insomnia SNOMED Code(s): 294583419 Code(s): G47.00 - INSOMNIA, UNSPECIFIED Priority: Low Current Visit: Yes Qualifiers: Insomnia type: unspecified Qualified Code(s): G47.00 - Insomnia, unspecified (3) Arthritis SNOMED Code(s): 1536287 Code(s): M19.90 - UNSPECIFIED OSTEOARTHRITIS, UNSPECIFIED SITE Priority: Medium Current Visit: Yes Problem List Initiated/Reviewed/Updated: Yes My Orders Last 24 Hours: My Active Orders 02/05/17 21:21 Zolpidem [Ambien] 5 mg PO BEDTIME PRN 02/06/17 09:00 Cholecalciferol (Vitamin D3) [Vitamin D3] 5,000 units PO DAILY Magnesium [Magnesium] 250 mg PO TID Plan: I/P: Acute: S/P right TKA, post-operative day 0 -DVT prophylaxis and pain management per primary team -PT/OT -IS/RT -Monitor O2 saturation -O2 as needed -Hgb 9.9 -Hct 29.6 -Electrolytes look good -eGFR >60 -Creatinine 0.8 -Vital signs stable Chronic: Insomnia Arthritis Plan: CM/SW for discharge planning Routine AM labs GI prophylaxis Home medications as indicated Other orders as above She is a full code. Her PCP is Mercy Donato PA-C here at [facility] Overall she appears to be recovering well. From a hospitalist standpoint she appears ready for discharge pending ortho agreement.
[2017-02-06] MEDS: ceFAZolin 2 GM in Premix Bag 1 BAG IV SCH (06:50)
[2017-02-06] MEDS: Acetaminophen/oxyCODONE 325-5 MG Tab PO PRN ×2 (06:51→11:56)
[2017-02-06] MEDS: Famotidine 20 MG Tab PO SCH (06:52)
[2017-02-06] MEDS: Ondansetron 4 MG/2 ML SDV IVPUSH PRN (08:07)
[2017-02-06] MEDS ORDERED: Aspirin 325 MG Tab.EC PO SCH (09:00)
[2017-02-06] MEDS ORDERED: Magnesium Oxide 400 MG Tab PO SCH (09:00)
[2017-02-06] MEDS ORDERED: Cholecalciferol (Vitamin D3) 1,000 Unit Tab PO SCH (09:00)
--- NOTE | 2017-02-06 12:00 | PCM48HPAN ---
Post Anesthesia Note - EVALUATION WITHIN 48HRS OF ANESTHETIC Vital Signs in Normal Range: Yes Patient Participated in Evaluation: Yes Respiratory Function Stable: Yes Airway Patent: Yes Cardiovascular Function Stable: Yes Hydration Status Stable: Yes Pain Control Satisfactory: Yes Nausea and Vomiting Control Satisfactory: Yes Mental Status Recovered: Yes - COMMENTS/OBSERVATIONS Free Text/Narrative:: Patient denied any headaches, residual numbness/ tingling to LE, or back pain.
--- NOTE | 2017-02-08 23:06 | OR ---
DATE OF OPERATION: 02/05/2017 SURGEON: Eduard Sainz MD OPERATION PERFORMED: Right total knee arthroplasty. PREOPERATIVE DIAGNOSIS: Right knee osteoarthrosis. POSTOPERATIVE DIAGNOSIS: Right knee osteoarthrosis. ANESTHESIA: Local MAC with spinal. PRIMARY SURGEON: Eduard Sainz MD. ANESTHESIA PROVIDER: Phoebe Sarmiento. ASSISTANTS: Fátima Johnson PA-C and Jacki Bañuelos LPN. ESTIMATED BLOOD LOSS: 200 mL. COMPLICATIONS: None. CONDITION: Stable. IMPLANTS: 1. Casimiro size 4 press-fit femur. 2. Casimiro size 4 press-fit tibia. 3. Casimiro size 4, 9 mm PS X3 polyethylene. 4. Casimiro press-fit 29 x 9 mm patella. DESCRIPTION OF PROCEDURE: The patient was identified in the preoperative holding area, proper site was marked and identified by the surgeon. The patient was taken back to the operating theater, where after adequate anesthesia, the patient had a nonsterile tourniquet applied to the right lower extremity and then was sterilely prepped and draped in the usual sterile fashion. OR time-out was performed. The patient received 2 g IV Ancef. At this time, the right lower extremity was exsanguinated. Tourniquet was insufflated to 250 mmHg. Standard medial parapatellar incision was made. A medial parapatellar arthrotomy was created. Deep fibers of the MCL were raised, and the anterior fat pad was resected. Attention was turned to the patella. Patella measured 23 and was resected to a 14 for a 29 x 9 mm patella. Drill holes were then drilled for the press-fit patella. At this time, attention was turned to the distal femur. Drill hole was placed in the intramedullary canal of the distal femur. Intramedullary distal femoral cutting guide was then placed and 8 mm resected off the distal femur. It was found to be an adequate resection. Sizing guide was then placed. It was found to be a size 4 femur. Epicondylar access holes were drilled using Whitesides line and epicondyles as reference. A 4-in-1 cutting block was then placed and the anterior and posterior chamfer cuts were then completed. The box cut was then completed for a size 4 femur. Attention was turned to the tibia. Posterior medial and lateral retractors were placed. Extramedullary tibial cutting guide was then placed in the old footprint of the ACL. Final alignment was set for roughly the second ray as well as the center of the ankle and slope was set for roughly 0 to 3 degrees. At this time, 9 mm was measured off the unaffected side and the resection was carried out. It was found to be an adequate resection. The medial and lateral meniscus were then removed along with any posterior osteophytes. Size 4 base plate was found to have adequate coverage. This was then placed as well as the trial implants, 9 mm trial spacer was then placed. The patient's knee had full extension and flexion. The patella was tracking centrally. At this time, it was stable to varus valgus stress. At this time, the tibia was stamped and drilled in proper rotation for the press-fit tibia. A size 4 press-fit tibia was then impacted into place. A size 4 press-fit femur was impacted into place. A 9 mm PS X3 polyethylene was then impacted into place. The patient's knee was then brought in full extension and a 29 x 9 mm patella was press-fit into place. At this time, the tourniquet was deflated. 1 L dilute Betadine solution was irrigated through the knee along with 3 L pulse lavage irrigation with Ancef. Periarticular injection was then completed. Topical vancomycin powder as well as tranexamic acid was then placed. A #2 barbed suture was used for closure of the medial parapatellar arthrotomy. 2-0 Vicryl was used subcutaneously and Prineo was used for the skin. The patient had a Mepilex placed and then sent back in stable condition. MMMARC /[id number]
--- NOTE | 2017-02-09 08:28 | PCM.DCSUM1 ---
Discharge Summary - Hospital Course Brief History: Kathy is a 61 yo female who underwent right TKA with Dr. Sainz on 02-05-2017. The procedure was completed under spinal anesthesia. The pt tolerated the procedure well and was admitted to the Medical-Surgical Unit. Medical management was provided by the Hospitalist service. The pt's Hospital course was uneventful. The pt's Hgb on POD#1 was 9.9. On POD#1, 325mg BID was initiated for VTE prophylaxis. SCDs and TEDs were also ordered. A Mepilex dressing was placed at the incision site at the time of surgery and remained clean and dry. The pt participated in P.T. and O.T. and progressed well. The pt was allowed to WBAT. On POD#1, the pt was deemed appropriate to discharge to home with her . - Discharge Data Discharge Date: 02/06/17 Discharge Disposition: Home, Self-Care 01 Condition: Good - Patient Summary/Data Operative Procedure(s) Performed: right total knee arthroplasty Consults: Consultations 02/05/17 06:21 Consult to Physician [CONS] Routine OT Evaluation and Treatment [CONS] Routine 02/05/17 06:24 PT Evaluation and Treatment [CONS] Routine - Patient Instructions Diet: Usual Diet as Tolerated Activity: Apply Ice, As Tolerated, Elevate Extremity, Full Weight Bearing Driving: Do Not Drive Showering/Bathing: May Shower Wound/Incision Care: Keep Operative Site/Wound Site Clean and Dry, Do NOT Change Dressing Notify Provider of: Fever, Increased Pain, Swelling and Redness, Drainage, Nausea and/or Vomiting Other/Special Instructions: Please get up and moving around every hour while awake. This helps to prevent blood clots. Please use your walker and have help as needed. Take a 325mg ASPIRIN TWICE DAILY. This also helps to prevent blood clots. The aspirin is being used for blood clot prevention and not for pain management, so please do not miss a dose of the medication. Do the exercises you were taught in the Hospital. Schedule for P.T. Use the pain medication as needed. The medication may cause drowsiness and constipation. Contact your primary care provider for instructions if you are constipated. You may use a stool softener like docusate sodium or Colace 100mg twice daily and/or a laxative like Miralax daily for constipation. Use the ice machine often. Elevate the limb to decrease swelling. Keep the Mepilex dressing in place until follow-up at the Clinic. Notify the Clinic if the dressing is saturated. Wear the NATA hose during the day and you may remove these at night. Eat a diet high in protein as this well help with healing. Schedule an appointment with your primary care provider for 'routine post-op care'. Call the Clinic with questions or concerns - [phone]. - Discharge Plan Home Medications: Home Meds C-Progesterone 1 applic TOP DAILY 02/02/17 [History] Ibuprofen 400 mg PO TID PRN 02/02/17 [History] Magnesium 250 mg PO TID 02/02/17 [History] Multivitamin [Daily Multiple Vitamin] 1 tab PO DAILY 02/02/17 [History] Zolpidem Tartrate 5 mg PO BEDTIME PRN 02/02/17 [History] Acetaminophen/oxyCODONE [Percocet 325-5 MG] 1 - 2 tab PO Q4H PRN #60 tablet [Rx] Aspirin [Ecotrin] 325 mg PO BID #42 tab.ec 02/06/17 [Rx] Cholecalciferol (Vitamin D3) [Vitamin D3] 5,000 unit PO DAILY #42 02/06/17 [Rx] Cyclobenzaprine [Flexeril] 10 mg PO TID PRN #40 tablet 02/06/17 [Rx] Patient Handouts: Total Knee Replacement, Care After, [id number], Total Knee Replacement, [id number], Aspirin, ASA oral tablets, Knee Rehabilitation Guidelines Following Surgery Forms: Take Home DC Nutrition Plan Referrals: Fátima Johnson PA-C [Physician [employer]] - (Please see Fátima Johnson on Monday February 13, 2017 at 11:15 PM and on Monday February 20, 2017 at 10:30 AM.) Mercy Donato PA [Primary Care Provider] - - Patient Data Vitals - Most Recent: Last Vital Signs Temp 97.2 F 02/06/17 11:36 Pulse 79 02/06/17 11:36 Resp 17 02/06/17 12:00 BP 129/95 H 02/06/17 11:36 Pulse Ox 100 02/06/17 11:36 Weight - Most Recent: 147 lb 8 oz Med Orders - Current: Current Medications Discontinued Medications Aspirin (Ecotrin) 325 mg PO BID JOAQUIM Last Admin: 02/06/17 09:04 Dose: 325 mg Bisacodyl (Dulcolax) 5 mg PO DAILY PRN PRN Reason: Constipation Bupivacaine HCl (Marcaine 0.25%) Confirm Administered Dose 30 ml .ROUTE .STK- MED ONE Stop: 02/05/17 06:01 Last Admin: 02/05/17 08:28 Dose: 30 ml Cefazolin Sodium (Ancef) Confirm Administered Dose 2 gm .ROUTE .STK-MED ONE Stop: 02/05/17 06:01 Last Admin: 02/05/17 08:23 Dose: 2 gm Cefazolin Sodium (Ancef) Confirm Administered Dose 2 gm .ROUTE .STK-MED ONE Stop: 02/05/17 07:28 Cholecalciferol (Vitamin D3) 5,000 units PO DAILY [facility] Last Admin: 02/06/17 09:04 Dose: 5,000 units Morphine Sulfate 8 mg/Epinephrine HCl 0.3 mg/Cefuroxime Sodium 750 mg/Ketorolac Tromethamine 30 mg/Sodium Chloride 27.9 ml 0 mg .XX ONETIME ONE Stop: 02/05/17 07:31 Last Admin: 02/05/17 08:28 Dose: 788.3 mg Cyclobenzaprine HCl (Flexeril) 10 mg PO TID PRN PRN Reason: Spasms Diphenhydramine HCl (Benadryl) 25 mg IVPUSH Q4H PRN PRN Reason: Nausea Diphenhydramine HCl (Benadryl) 25 mg IVPUSH Q6H PRN PRN Reason: Pruritis Stop: 02/05/17 18:00 Docusate Sodium (Colace) 100 mg PO BID PRN PRN Reason: Constipation Ephedrine Sulfate (Ephedrine Sulfate) 5 mg IVPUSH ASDIRECTED PRN PRN Reason: Hypotension Stop: 02/05/17 18:00 Ephedrine Sulfate (Ephedrine Sulfate) Confirm Administered Dose 50 mg .ROUTE .STK-MED ONE Stop: 02/05/17 09:00 Ephedrine Sulfate (Ephedrine Sulfate) Confirm Administered Dose 50 mg .ROUTE .STK-MED ONE Stop: 02/05/17 11:09 Famotidine (Pepcid) 20 mg PO Q12H [facility] Last Admin: 02/06/17 06:52 Dose: 20 mg Fentanyl (Sublimaze) Confirm Administered Dose 100 mcg .ROUTE .STK-MED ONE Stop: 02/05/17 07:04 Haloperidol Lactate (Haldol) 1 mg IVPUSH ONETIME ONE Stop: 02/05/17 09:01 Last Admin: 02/05/17 11:25 Dose: Not Given Lactated Ringer's (Ringers, Lactated) 1,000 mls @ 125 mls/hr IV ASDIRECTED [facility] Last Admin: 02/05/17 09:31 Dose: 125 mls/hr Cefazolin Sodium/Dextrose 2 gm (/ Premix) 50 mls @ 100 mls/hr IV Q8H [facility] Stop: 02/05/17 22:59 Last Admin: 02/05/17 11:24 Dose: Not Given Cefazolin Sodium/Dextrose 2 gm (/ Premix) 50 mls @ 100 mls/hr IV Q8H [facility] Stop: 02/06/17 07:59 Last Admin: 02/06/17 06:50 Dose: 100 mls/hr Lactated Ringer's (Ringers, Lactated) Confirm Administered Dose 1,000 mls @ as directed .ROUTE .STK-MED ONE Stop: 02/05/17 11:35 Lactated Ringer's (Ringers, Lactated) Confirm Administered Dose 1,000 mls @ as directed .ROUTE .STK-MED ONE Stop: 02/05/17 12:07 Lactated Ringer's (Ringers, Lactated) Confirm Administered Dose 1,000 mls @ as directed .ROUTE .STK-MED ONE Stop: 02/05/17 12:08 Lactated Ringer's (Ringers, Lactated) Confirm Administered Dose 1,000 mls @ as directed .ROUTE .STK-MED ONE Stop: 02/05/17 12:08 Iodine (Iodine 2% Mild Tincture) Confirm Administered Dose 30 ml .ROUTE .STK- MED ONE Stop: 02/05/17 06:01 Last Admin: 02/05/17 08:19 Dose: 18 ml Ketamine HCl (Ketalar) Confirm Administered Dose 500 mg .ROUTE .STK-MED ONE Stop: 02/05/17 07:05 Ketamine HCl (Ketalar) Confirm Administered Dose 500 mg .ROUTE .STK-MED ONE Stop: 02/05/17 10:29 Ketorolac Tromethamine (Toradol) 15 mg IVPUSH Q6H [facility] Stop: 02/05/17 18:31 Last Admin: 02/05/17 11:25 Dose: Not Given Ketorolac Tromethamine (Toradol) Confirm Administered Dose 30 mg .ROUTE .STK- MED ONE Stop: 02/05/17 09:21 Ketorolac Tromethamine (Toradol) 15 mg IVPUSH Q6H [facility] Stop: 02/06/17 03:01 Last Admin: 02/06/17 02:58 Dose: 15 mg Lidocaine/Sodium Bicarbonate (Buffered Lidocaine 1% In Ns 8.4%) 0.25 ml IV ONETIME PRN PRN Reason: Prior to IV Start Last Admin: 02/05/17 06:29 Dose: 0.25 ml Magnesium Hydroxide (Milk Of Magnesia) 30 ml PO BID PRN PRN Reason: Constipation Magnesium Oxide (Magnesium Oxide) 400 mg PO TID [facility] Last Admin: 02/06/17 09:04 Dose: 400 mg Midazolam HCl (Versed 1 Mg/Ml) Confirm Administered Dose 2 mg .ROUTE .STK-MED ONE Stop: 02/05/17 07:05 Midazolam HCl (Versed 1 Mg/Ml) Confirm Administered Dose 2 mg .ROUTE .STK-MED ONE Stop: 02/05/17 10:44 Midazolam HCl (Versed 1 Mg/Ml) Confirm Administered Dose 2 mg .ROUTE .STK-MED ONE Stop: 02/05/17 12:02 Morphine Sulfate (Morphine) 2 mg IVPUSH Q2H PRN PRN Reason: Breakthrough Pain Morphine Sulfate (Duramorph Pf) Confirm Administered Dose 10 mg .ROUTE .STK-MED ONE Stop: 02/05/17 07:19 Naloxone HCl (Narcan) 0.1 mg IVPUSH Q5M PRN PRN Reason: Oversedation Ondansetron HCl (Zofran) 4 mg IVPUSH Q6H PRN PRN Reason: Nausea/Vomiting Last Admin: 02/06/17 08:07 Dose: 4 mg Ondansetron HCl (Zofran) 4 mg IVPUSH ONETIME PRN PRN Reason: Nausea/Vomiting Stop: 02/05/17 18:00 Oxycodone/Acetaminophen (Percocet 325-5 Mg) 1 - 2 tab PO Q4H PRN PRN Reason: Pain Last Admin: 02/06/17 11:56 Dose: 2 tab Phenylephrine HCl (David-Synephrine) Confirm Administered Dose 10 mg .ROUTE .STK- MED ONE Stop: 02/05/17 08:11 Phenylephrine HCl (David-Synephrine) Confirm Administered Dose 10 mg .ROUTE .STK- MED ONE Stop: 02/05/17 10:48 Propofol (Diprivan 20 Ml) Confirm Administered Dose 200 mg .ROUTE .STK-MED ONE Stop: 02/05/17 07:04 Propofol (Diprivan 20 Ml) Confirm Administered Dose 200 mg .ROUTE .STK-MED ONE Stop: 02/05/17 07:06 Propofol (Diprivan 20 Ml) Confirm Administered Dose 200 mg .ROUTE .STK-MED ONE Stop: 02/05/17 07:08 Propofol (Diprivan 20 Ml) Confirm Administered Dose 200 mg .ROUTE .STK-MED ONE Stop: 02/05/17 10:38 Propofol (Diprivan 20 Ml) Confirm Administered Dose 200 mg .ROUTE .STK-MED ONE Stop: 02/05/17 10:38 Propofol (Diprivan 20 Ml) Confirm Administered Dose 200 mg .ROUTE .STK-MED ONE Stop: 02/05/17 10:46 Propofol (Diprivan 20 Ml) Confirm Administered Dose 200 mg .ROUTE .STK-MED ONE Stop: 02/05/17 11:39 Propofol (Diprivan 20 Ml) Confirm Administered Dose 200 mg .ROUTE .STK-MED ONE Stop: 02/05/17 11:57 Senna (Senna) 8.6 mg PO BID PRN PRN Reason: Constipation Sodium Chloride (Saline Flush) 10 ml FLUSH ASDIRECTED PRN PRN Reason: Keep Vein Open Tranexamic Acid (Cyklokapron) Confirm Administered Dose 1,000 mg .ROUTE .STK- MED ONE Stop: 02/05/17 06:00 Last Admin: 02/05/17 08:41 Dose: 1,000 mg Vancomycin HCl (Vancomycin) Confirm Administered Dose 1 gm .ROUTE .STK-MED ONE Stop: 02/05/17 06:01 Last Admin: 02/05/17 08:35 Dose: 1 gm Zolpidem Tartrate (Ambien) 5 mg PO BEDTIME PRN PRN Reason: Insomnia *Q Meaningful Use (DIS) - VTE *Q VTE Criteria *Q: - Stroke *Q Stroke Criteria *Q: - AMI *Q AMI Criteria *Q:
== END 2017-02-06 14:58 | disposition home or self-care (01) | DRG 302 ==
LOC: JD.MS 05:57
PROVIDERS: ADMIT Orthopaedic Surgery; ATTEND Orthopaedic Surgery
PROC: 0SRC0J9 Replacement of Right Knee Joint with Synthetic Substitute, Cemented, Open Approach (ICD-10-PCS; principal; 2017-02-05)
DX: M17.11 Unilateral primary osteoarthritis, right knee (principal); G47.00 Insomnia, unspecified; Z79.899 Other long term (current) drug therapy; H54.7 Unspecified visual loss
CPT/HCPCS: 01402; 36415; 73560-26-RT; 73560-RT; 80053; 85025; 94762; 97110-GP; 97116-GP; 97161-GP; 97165-GO; 97530-GO; 97535-GO; A9270-GY; C1776; J0171; J0690; J0697; J1885; J2250; J2270; J2370; J2405; J2704; J3010; J3370; J3490; J7120